=== PATIENT | male | born 1965 | race Caucasian/White ===

== ENCOUNTER 2019-06-07 15:12 | Inpatient (IN) ==
[2019-06-07] MEDS ORDERED: APRESOLINE IV PRN (17:44)
[2019-06-07] MEDS ORDERED: LOVENOX SUBQ SCH (17:45)
--- NOTE | 2019-06-07 19:15 | Diag Imaging Result Doc PS360 ---
CHEST-2 VIEWS - 06/07/2019 INDICATION: SOB COMPARISON: 01/25/2019 FINDINGS: The lungs are normally expanded and clear. Heart size and mediastinal contours are normal. No pneumothorax or pleural effusion. IMPRESSION: Negative exam. Electronically signed by Sree Davey 06/07/2019 7:13 PM
[2019-06-07 19:20] LABS: BASO# 0.03 X1000 (0.0-0.2); BASO% 0.5 % (0.0-0.8); EOS% 1.6 % (0.0-10.0); HEMATOCRIT 51.7 % (42.0-52.0); HEMOGLOBIN 17.3 g/dL (14.0-18.0); IMM GRAN# 0.02 X1000 (0.0-0.04); IMM GRAN% 0.3 % (0.0-0.5); LYMPH# 1.27 X1000 (1.2-3.4); LYMPH% 20.5 % (20.5-51.1); MCH 27.7 PG (27-31); MCHC 33.5 g/dL (33-37); MCV 82.7 FL (81-99); MONO# 0.55 X1000 (0.11-0.59); MONO% 8.9 % (1.7-9.3); MPV 12.4 FL (7.4-10.4); NEUT# 4.24 X1000 (1.4-6.5); NEUT% 68.2 % (42.2-75.2); PLT 168 X1000 (130-400); RBC 6.25 XMIL (4.7-6.1); RDW 14.6 % (11.5-14.5); WBC 6.21 X1000 (4.8-10.8)
[2019-06-07 19:33] LABS: AGAP 13; ALBUMIN 4.3 g/dL (3.5-5.0); ALKALINE PHOSPHATASE 51 U/L (32-122); BUN 13 mg/dL (8-22); CALCIUM 9.4 mg/dL (8.8-10.2); CHLORIDE 103 mmol/L (98-107); CK PROFILE 96 U/L (24-204); COSMO 284; CREATININE 1.2 mg/dL (0.7-1.2); ESTIMATED GFR > 60; GLUCOSE 151 mg/dL (70-104); GOT 20 U/L (10-34); GPT 27 U/L (10-44); POTASSIUM 3.9 mmol/L (3.5-5.1); SODIUM 141 mmol/L (136-145); TCO2 25 mmol/L (25-35); TOTAL BILIRUBIN 0.32 mg/dL (0.20-1.00); TOTAL PROTEIN 6.4 g/dL (6.3-8.3)
[2019-06-07] MEDS ORDERED: AMBIEN PO PRN (19:36)
[2019-06-07 19:50] LABS: TSH 5.84 uIUmL (0.27-4.20)
[2019-06-07 20:19] LABS: SED RATE 0 mm/hr (0-15)
[2019-06-07] MEDS: BUSPAR PO SCH (20:35)
--- NOTE | 2019-06-07 22:34 | HISTORY AND PHYSICAL ---
SUBJECT: Uncontrolled blood pressure, fatigue, weakness, chest pressure since yesterday. HISTORY OF PRESENT ILLNESS: He is 53-year-old white gentleman who came in my office with chest pain, continuous and not related to exertion. Also, substantially elevated blood pressure. He is very remorseful. His father with a massive heart attack 6 weeks ago. He also has complains of fatigue and weakness. He has been taking testosterone shots which has been stopped. He is not exercising for the last 2 months. His father had elevated white cell count 100,000 and prior to the workup and he with a massive heart attack. EKG in my office, normal sinus, nothing acute. Options are discussed and the patient wants to address the issue immediately. As a result, admitted to the hospital for observation to rule out ischemic heart disease. PAST MEDICAL HISTORY: Incomplete right bundle, carpal tunnel syndrome, metabolic syndrome, GERD, hypertension, hyperuricemia, lumbar chronic back pain, history of testosterone replacement due to testicular dysfunction. PAST SURGICAL HISTORY: Appendectomy, cholecystectomy, left knee arthroscopy. MEDICINES: Amlodipine 10 daily, Flonase as needed, losartan 100 daily, Nexium 40 daily, Cialis as needed. ALLERGIES: Amoxicillin. SOCIAL HISTORY: 2 children. Lives in [place]. No smoking. No alcohol working in [employer]. FAMILY HISTORY: Father at 78 with MS and possible leukemia, diabetes and hypertension. Mom is alive with diabetes. He has health maintenance. Lastly, seen by Dr. Childress August 2017. Colonoscopy 2002. REVIEW OF SYSTEMS: HEENT: No headache. No vision problem. No earache. No sore throat. Neck: No goiter. No lymphadenopathy. No bruit. Cardiopulmonary: Chest pain. Elevated blood pressure. Slight headache. No shortness of breath. No PND. No orthopnea. GI: No nausea, vomiting, abdominal pain. : No history of hesitancy, frequency, dysuria. No swelling of legs. No joint pain. Neurologic: No focal symptoms or weakness. PHYSICAL EXAMINATION: VITAL SIGNS: Temperature is 97.9 degrees, pulse 83, blood pressure is 186/92. He is 6 feet tall, 216 pounds. HEENT: Atraumatic, normocephalic. Pupils equal, react to light. TMs are normal. Nose and throat within normal limits. NECK: Supple. No lymphadenopathy. No goiter. CHEST: Bilateral air entry. HEART: Sounds are regular. ABDOMEN: Belly is soft, obese, nontender. Good bowel sounds. No peripheral edema or cyanosis. NEUROLOGIC: No obvious neurological deficits. INVESTIGATIONS: White cell count 6.2, hematocrit 51.7, platelets 168,000. SMA 7 is normal. Glucose 151. ProBNP is normal. Cardiac enzymes are normal. B12 is normal. TSH is slightly high. EKG normal sinus nothing acute. Chest x-ray was negative. ASSESSMENT AND PLAN: 1. A 53-year-old white male admitted to the hospital with uncontrolled hypertension with left ventricular hypertrophy. Continue on present treatment with amlodipine and losartan. Hydralazine as needed. 2. Chest pain. Family history of heart disease and on testosterone replacement therapy and will use the aspirin and stress test in the morning since he ruled out. 3. Hypogonadism. Restart replacement therapy. Check the free testosterone in the morning. Lipid profile as well. 4. Elevated TSH. We will do the free T4. 5. Uncontrolled hypertension. Rule out sleep apnea. Rule out renal artery stenosis and currently has a lot of anxiety. Continue on BuSpar. Ambien for sleep. 6. Deep venous thrombosis prophylaxis with Lovenox and will follow up. I discussed the plan of care with family. cc: Miguelito Bennett MD
[2019-06-08 06:14] LABS: CHOLESTEROL 204 mg/dL (0-200); HDL 44 mg/dL (35-55); LDL 138 mg/dL; TRIGLYCERIDES 110 mg/dL (39-160); VLDL 22 mg/dL
[2019-06-08] MEDS ORDERED: ASPIRIN EC PO SCH (09:00)
[2019-06-08] MEDS ORDERED: COZAAR PO SCH (09:00)
[2019-06-08] MEDS ORDERED: PRILOSEC PO SCH (09:00)
[2019-06-08] MEDS: BUSPAR PO SCH (11:49)
--- NOTE | 2019-06-08 13:36 | Diag Imaging Result Document ---
PROCEDURE NAME: MYOCARDIAL PERF SCAN, STR/REST - 06/08/2019 INDICATIONS: Chest pain. PROCEDURE PERFORMED: 1. Neha protocol stress. 2. One-day stress rest myocardial perfusion imaging (rest dose 14.1 millicuries, stress dose 42.7 mCi). NEHA PROTOCOL STRESS RESULTS: 1. Baseline EKG shows sinus rhythm. 2. Patient exercised for a total of 9 minutes achieving peak heart rate of 148 which was 89% of age predicted max. He achieved 10.1 mets and stage 3 of the Neha protocol. Exercise capacity was 99% of age and sex predicted exercise capacity. 3. Somewhat hypertensive response to exercise. 4. Test was terminated due to fatigue. 5. No anginal complaints occurred during the course of study. 6. There is no clear evidence of ischemic related EKG changes or significant arrhythmias during the course of the study. Occasional PVCs were identified. PERFUSION IMAGING RESULTS: 1. No evidence of abnormal extra cardiac uptake. 2. TID ratio is 0.84. 3. Perfusion imaging demonstrates a small size, mild intensity, fixed defect in the mid anterior wall. This defect actually improves markedly from rest to stress imaging. Wall motion is intact in this area. I believe this likely represents soft tissue attenuation artifact. There is no evidence of ischemic changes. 4. Normal ejection fraction of 67%. The end-diastolic volume is 121 and systolic volume of 40. Normal wall motion. cc: MD Miguelito Burk MD
--- NOTE | 2019-06-08 15:44 | Diag Imaging Result Doc PS360 ---
EXAM: CT ANGIOGRAM RENAL ARTERIES INDICATION: cp /HTN TECHNIQUE: This exam was performed using automated exposure control, adjustment of mA or kV according to patient size, and/or use of iterative reconstruction technique. Thin section axial images and 3-D MIPS were obtained. COMPARISON: None. FINDINGS: There is only minimal atherosclerotic calcification at the distal aorta. There is no evidence of aortic stenosis and no aortic aneurysm. There is one renal artery on the right. On the left, in addition to the main renal artery, there is a small accessory renal artery supplying the upper pole of the left kidney. All of the renal arteries are widely patent. The celiac trunk, SMA, and TRACI are widely patent. Both kidneys enhance symmetrically. The spleen is mildly prominent measuring 14.6 cm axially. The liver, pancreas, and adrenal glands are unremarkable. There are a few uncomplicated descending colonic diverticula. The visualized abdominal segments of the GI tract are unremarkable, otherwise. IMPRESSION: Minimal atherosclerotic calcification at the distal aorta. No evidence of renal artery stenosis. Electronically signed by Pillo Hidalgo 06/08/2019 3:42 PM
[2019-06-08 16:41] VITALS: BP 181/95
[2019-06-08] MEDS ORDERED: NORVASC PO SCH (17:00)
--- NOTE | 2019-06-10 07:23 | DISCHARGE SUMMARY ---
ADMISSION DATE: 06/07/2019 DISCHARGE DATE: 06/08/2019 DISCHARGING DIAGNOSES: 1. Uncontrolled hypertension with LV hypertrophy exacerbated by weight gain and anxiety. 2. Atypical chest pain, stress test was negative. 3. Incomplete right bundle metabolic syndrome. 4. Hyperuricemia. 5. History of hypogonadism on replacement therapy. 6. Acid reflux disease. PROCEDURES: 1. Myocardial perfusion scan. GXT study was negative for perfusion defects. 2. CT renal angiogram with minimal atherosclerosis. No evidence of renal artery stenosis. BRIEF HISTORY: Please see the H and P that was done on 06/07/2019. In brief, he is a 53-year-old white gentleman who basically came into the hospital with chest pain, and elevated blood pressure. EKG at resting. No ischemic changes noted. His blood pressure was 190/100. He is already on amlodipine and losartan at maximum dose. He was taking testosterone shots for hypogonadism. He is not exercising. He had a lot of family issues, and undergoing a lot of stress. During this hospital course, he was given hydralazine, and all the workup was essentially unremarkable. Other options include possible sleep apnea, and rule out pheochromocytoma. Atrial fibrillation is uncontrolled. LABORATORY: CBC: White cell count 6.2, hematocrit 51.7, and platelets 168,000. SMA 7 is normal. Glucose 151, proBNP and thyroid function tests were normal. Vitamin B12 is normal. Triglycerides 110, cholesterol 204, and HDL 44. Chest x-ray was negative. DISCHARGE MEDICATIONS: 1. Losartan 100 mg daily. 2. BuSpar 7.5 p.o. b.i.d. for anxiety. 3. Aspirin 81 mg daily. 4. Nexium 20 mg daily. 5. Hold testosterone. Followup on free testosterone level. 6. Amlodipine 10 daily. 7. Flonase as needed. 8. Hydrochlorothiazide 25 mg daily. DISCHARGE INSTRUCTIONS: Follow up in my office in 10 days. He is going to see Dr. Monroe Cobb for the hypogonadism. He needs to lose some weight. If the blood pressure is out of control, consider other options. Rule out sleep apnea, and rule out pheochromocytoma. We will address those issues as an outpatient. cc: MD Monroe Mendoza MD
== END 2019-06-08 20:44 | disposition home or self-care (01) | DRG 313 ==
LOC: DIRADM 15:12 → 2N 16:46
PROVIDERS: ADMIT Internal Medicine; ATTEND Internal Medicine